=== PATIENT | female | born 1980 | race Caucasian/White ===

== ENCOUNTER 2016-08-15 09:34 | Day surgery (SDC) | payer SELFPAY ==
[2016-08-15 11:21] LABS: MCH 33.1 pg (25.7-33.7); MCHC 34.8 g/dl (32.0-36.0); MEAN CELL VOLUME 95.2 fl (80-96); MEAN PLT VOLUME 8.1 fl (7.5-11.1); PLATELET COUNT 430 K/MM3 (134-434); RDW 11.5 % (11.6-15.6); WHITE BLOOD COUNT 7.9 K/mm3 (4.0-10.0)
[2016-08-15] MEDS ORDERED: GENTAMICIN SO4 80 MG/2 ML VIAL ONE (12:41)
[2016-08-15] MEDS ORDERED: ceFAZolin SODIUM 1 GM VIAL ONE ×2 (12:41→15:14)
[2016-08-15] MEDS ORDERED: PROPOFOL 20 ML ONE ×3 (14:09)
[2016-08-15] MEDS ORDERED: ROCURONIUM BROMIDE 50 MG/5 ML VIAL ONE ×2 (14:09→15:30)
[2016-08-15] MEDS ORDERED: MIDAZOLAM HCL 2 MG/2 ML SINGLE DOSE VIAL ONE ×2 (14:10)
[2016-08-15] MEDS ORDERED: ONDANSETRON 4 MG/2 ML VIAL ONE (15:14)
[2016-08-15] MEDS ORDERED: DEXAMETHASONE SOD PHOSPHATE 4 MG/1 ML VIAL ONE (15:14)
[2016-08-15] MEDS ORDERED: DESFLURANE GAS 240 ML BOTTLE IH ONE (15:41)
[2016-08-15] MEDS ORDERED: NEOSTIGMINE METHYLSULFATE 0.5 MG/ML - 10 ML MDV ONE ×2 (16:26→16:46)
[2016-08-15] MEDS ORDERED: GLYCOPYRROLATE 0.2 MG/1 ML VIAL ONE (16:26)
[2016-08-15] MEDS ORDERED: oxyCODONE HCL 5 MG TABLET PO PRN ×3 (17:06→17:10)
[2016-08-15] MEDS ORDERED: ONDANSETRON 4 MG/2 ML VIAL IVPUSH PRN (17:06)
[2016-08-15] MEDS ORDERED: KETOROLAC TROMETHAMINE 30 MG/1 ML VIAL IVPUSH ONE (17:08)
[2016-08-15] MEDS ORDERED: ONDANSETRON 4 MG/2 ML VIAL IVPB PRN (17:10)
[2016-08-15] MEDS ORDERED: LACTATED RINGERS SOLUTION 1,000 ML IV SCH ×2 (17:15)
[2016-08-15] MEDS ORDERED: oxyCODONE HCL 5 MG TABLET ONE (18:45)
[2016-08-15 19:42] VITALS: BP 100/68; PULSE 58; TEMP 97.9
--- NOTE | 2016-08-16 18:56 | OP ---
DATE OF OPERATION: 08/15/2016 TITLE OF PROCEDURE: Bilateral silicone breast augmentation. ATTENDING SURGEON: Marky Almaraz MD HEATING AND VENTILATING WORKER: None. ANESTHESIA: General endotracheal anesthesia. DESCRIPTION OF PROCEDURE: The patient is marked in the holding area. It was discussed with the patient all risks, benefits and alternatives to the operation, which she understands and agrees to proceed. It is also discussed with the patient that she has preoperative asymmetry, which we will attempt to correct, but postoperative asymmetry is certainty and she needs to accept this. The patient does accept this, agrees to the procedure. Sequential compression stockings and TATI hose are applied in the holding area. She was brought to the operating room, placed in the supine position. All pressure points are carefully padded. She is prepped and draped in the standard surgical fashion. Ancef 1 g was given preoperatively. A timeout was called. The patient, procedure, side and site are verified. The attention was first directed toward the patient's left side where an incision is made in the inframammary crease, 4 cm in length. Dissection has been carried down to the level of the pectoralis major muscle. A subpectoral pocket is developed and hemostasis meticulously achieved with Bovie cautery. The wound was copiously irrigated with triple antibiotic solution. Triple antibiotic solution in this case is 1 L of normal saline; 50,000 units of bacitracin; 80 mg of gentamicin and 1 g of Ancef. When this pocket dissection was completed, a similar pocket was dissected on the contralateral side. It was noted preoperatively that the right breast inframammary fold was 1 cm superior to the left breast and to correct this the incision was made roughly 1 cm inferior to the existing inframammary fold. The pocket was created in a similar way. Additional fibers of the pectoralis major muscle along the insertion at the inferior costal margin are divided to allow for a more inferior position of this implant. The medial pectoralis muscle fibers are divided at the inner quadrant of the breast bilaterally. Copious irrigation and hemostasis are achieved. At this point, gloves are changed and the first implant was brought onto the field. It is a [employer] SRM-295 smooth round moderate plus profile silicon gel filled implant. A no-touch technique is used with a Foley funnel. The implant is rinsed of the biofilm with triple antibiotic solution. It is inserted and oriented properly. This is done bilaterally. The skin is tailor tacked with syl. The patient is brought to a seated upright position where symmetry is assessed. The position of the right implant is slightly lower to accommodate for the preoperative asymmetry. This is achieved and the closure is then performed with capsular fascial 3-0 Vicryl suture interrupted, followed by a running glandular 3-0 Monocryl suture followed by a series of interrupted buried deep dermal 3-0 Monocryl suture, followed by a running subcuticular 4-0 Monocryl suture. This closure is performed bilaterally. Full length half-inch Steri-Strips are then applied to the incisions. A compressive breast binder with Hypafix tape, ABD gauze are applied for dressings. The patient awoke from anesthesia having tolerated the procedure well. She was transferred to recovery without complication. MARKY ALMARAZ M.D. [id number]
== END 2016-08-15 19:40 | disposition home or self-care (01) ==
LOC: FASU 09:34
PROVIDERS: ATTEND Plastic Surgery
PROC: 0H0V0JZ Alteration of Bilateral Breast with Synthetic Substitute, Open Approach (ICD-10-PCS; principal; 2016-08-15 11:30)
DX: Z41.1 Encounter for cosmetic surgery (principal)
CPT/HCPCS: 36415; 84703; 85027; 94760

== ENCOUNTER 2018-12-31 06:03 | Day surgery (SDC) | payer OTHER ==
[2018-12-05 10:04] VITALS: BMI 21.2
[2018-12-31] MEDS ORDERED: MIDAZOLAM HCL 2 MG/2 ML SINGLE DOSE VIAL ONE (07:20)
[2018-12-31] MEDS ORDERED: PROPOFOL 20 ML ONE ×2 (07:20)
[2018-12-31] MEDS ORDERED: SUCCINYLCHOLINE CHLORIDE 200 MG/10 ML SYRINGE ONE (07:20)
--- NOTE | 2018-12-31 07:54 | HP ---
Past Medical History - Primary Care Physician PCP:: Golden Gray - Admission Chief Complaint: 38yo P0 female with endometrial polyps and infertility, admitted for hysteroscopy, polypectomy, and D&C. History of Present Illness: Uterine polyps on HSG, infertility History Source: Patient, Medical Record Limitations to Obtaining History: No Limitations - Past Medical History CONGRESSIONAL ASSISTANT: No: Alzheimer's, CVA, Dementia, Migraine, Multiple Sclerosis, Peripheral Neuropathy, Parkinson's, Seizure, Syncope, TIA, Vertigo, Other Cardiovascular: No: AFIB, Aneurysm, Aortic Insufficiency, Aortic Stenosis, CAD, CHF, Deep Vein Thrombosis, HTN, Hyperlipdemia, TN, Mitral Insufficiency, Mitral Stenosis, Murmur, Pulmonary Hypertension, Other Pulmonary: No: Asthma, Bronchitis, Cancer, COPD, O2 Dependent, Pneumonia, Previously Intubated, Pulmonary Embolus, Pulmonary Fibrosis, Sleep Apnea, Other Gastrointestinal: No: Ascites, Cancer, Constipation, Crohn's Disease, Diverticulitis, Diverticulosis, Esophageal Varices, Gastritis, GERD, GI Bleed, Hemorrhoids, Hiatal Hernia, Inflamatory Bowel Disease, Irritable Bowel Disease, Pancreatitis, Peptic Ulcer Disease, Ulcerative Colitis, Other Hepatobiliary: No: Cirrhosis, Cholelithiasis, Cholecystitis, Choledocholithiasis , Hepatitis A, Hepatitis B, Hepatitis C, Other Renal/: No: Renal Failure, Renal Inusuff, BPH, Cancer, Hematuria, Hemodialysis , Neurogenic Bladder, Renal Calculi, UTI, Other Reproductive: No: Ectopic , Endometriosis, Fibroids, PID, Polycystic Ovary Syndrome, Postmenopausal, Other ...: 0 ...Para: 0 Heme/Onc: No: Anemia, B12 Deficiency, Bleeding Disorder, Cancer, Current Chemotherapy, Current Radiation Therapy, Hemochromatosis, Hypercoaguable State, Myeloproliferative Synd, Sickle Cell Disease, Sickle Cell Trait, Thrombocytopenia, Other Infectious Disease: No: AIDS, C-Diff, Herpes Zoster, HIV, MRSA, STD's, Tuberculosis, VREF, Other Psych: No: Addictions, Anxiety, Bipolar, Depression, Panic, Psychosis, Schizophrenia, Other Musculoskeletal: No: Bursitis, Chronic low back pain, Hemiparesis, Hemiplegia, Osteoarthritis, Paraplegia, Other Rheumatology: No: Fibromyalgia, Gout, Lupus, Rheumatoid Arthritis, Sarcoidosis, Vasculitis, Other ENT: No: Allergic Rhinitis, Sinusitis, Other Endocrine: No: [place]'s Disease, [place]'s Disease, Diabetes Insipidus, Diabetes Mellitus, Hyperparathyroidism, Hyperthyroidism, Hypothyroidism, Osteopenia, SIADH, Other Dermatology: No: Basal Cell, Cellulitis, Eczema, Melanoma, Psoriasis, Squamous Cell, Other - Past Surgical History Hx Myomectomy: No Hx Transabdominal Cerclage: No Additional Surgical History: Brain tumor on 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 13yo - Smoking History Smoking history: Current some day smoker Have you smoked in the past 12 months: Yes - Alcohol/Substance Use Hx Alcohol Use: Yes (WEEKENDS) History of Substance Use: reports: None - Social History Usual Living Arrangement: Yes: Alone ADL: Independent History of Recent Travel: No Home Medications - Allergies Allergies/Adverse Reactions: Allergies Allergy/AdvReac Type Severity Reaction Status Date / Time No Known Allergies Allergy Verified 12/31/18 06:28 - Home Medications Home Medications: Ambulatory Orders Biotin 1 each PO DAILY 08/12/16 No122/Iron/Folic Acid [ Multi Tablet] 1 each PO DAILY 12/05/18 Family Disease History - Family Disease History Family Disease History: CA: Mother (breast), Respiratory: Father (pulm fibrosis) Review of Systems - Review of Systems Constitutional: reports: No Symptoms Eyes: reports: No Symptoms HENT: reports: No Symptoms Neck: reports: No Symptoms Cardiovascular: reports: No Symptoms Respiratory: reports: No Symptoms Gastrointestinal: reports: No Symptoms Genitourinary: reports: No Symptoms Breasts: reports: No Symptoms Reported Musculoskeletal: reports: No Symptoms Integumentary: reports: No Symptoms Neurological: reports: No Symptoms Endocrine: reports: No Symptoms Hematology/Lymphatic: reports: No Symptoms Psychiatric: reports: No Symptoms Pain Intensity: 0 Physical Exam-SOFTWARE ENGINEER INTERN Vital Signs: Vital Signs Temperature 98.0 F 12/31/18 06:22 Pulse Rate 52 L 12/31/18 06:22 Respiratory Rate 20 12/31/18 06:22 Blood Pressure 97/63 12/31/18 06:22 O2 Sat by Pulse Oximetry (%) 100 12/31/18 06:23 Constitutional: Yes: Well Nourished, No Distress, Calm Eyes: Yes: WNL, Conjunctiva Clear HENT: Yes: WNL, Atraumatic, Normocephalic Neck: Yes: WNL, Supple, Trachea Midline Cardiovascular: Yes: WNL, Regular Rate and Rhythm Respiratory: Yes: WNL, Regular, CTA Bilaterally Gastrointestinal: Yes: WNL, Normal Bowel Sounds, Soft ...Rectal Exam: Yes: Deferred Renal/: Yes: WNL Pelvis: Yes: WNL External Genitalia: Yes: Normal Internal Exam Deferred: No Vaginal Exam: Yes: Normal Cervix: Yes: Normal Uterus: Yes: Normal Adnexa: Normal: Left, Right Breast(s): Yes: WNL Musculoskeletal: Yes: WNL Extremities: Yes: WNL Edema: No Integumentary: Yes: WNL Neurological: Yes: WNL, Alert, Oriented ...Motor Strength: WNL Psychiatric: Yes: WNL, Alert, Oriented Imaging - Results Ultrasound: Report Reviewed Assessment/Plan 38yo P0 female with endometrial polyps and infertility, admitted for hysteroscopy, polypectomy, and D&C. We had discussed the risks, benefits, alternatives of surgery at length including but not limited to infection, bleeding, scarring, perforation, amenorrhea, infertility, hysterectomy, etc. The pt verbalized understanding and requested to proceed with surgery. I emphasized that all surgeries have risks and no guarantees can be provided.
[2018-12-31] MEDS ORDERED: DEXAMETHASONE SOD PHOSPHATE 4 MG/1 ML VIAL ONE (08:00)
[2018-12-31] MEDS ORDERED: ceFAZolin SODIUM 1 GM VIAL ONE (08:00)
[2018-12-31] MEDS ORDERED: ceFAZolin SODIUM 1 GM VIAL IVPB ONE (08:02)
[2018-12-31] MEDS ORDERED: KETOROLAC TROMETHAMINE 30 MG/1 ML VIAL ONE (08:25)
[2018-12-31] MEDS ORDERED: LIDOCAINE HCL/PF 2% SDV 5ML VIAL ONE (08:29)
[2018-12-31] MEDS ORDERED: ONDANSETRON 4 MG/2 ML VIAL IVPUSH PRN (08:41)
[2018-12-31] MEDS ORDERED: oxyCODONE HCL 5 MG TABLET PO PRN (08:41)
[2018-12-31] MEDS ORDERED: LACTATED RINGERS SOLUTION 1,000 ML IV SCH (08:45)
--- NOTE | 2018-12-31 08:48 | OP ---
Operative Note - Note: Operative Date: 12/31/18 Pre-Operative Diagnosis: Endometrial polyps Operation: Hysteroscopy, polypectomy, D&C Findings: Several small polyps Post-Operative Diagnosis: Same as Pre-op Surgeon: Golden Gray Anesthesiologist/SCALE ASSEMBLY SET UP WORKER: Erasmo Garcia Anesthesia: General Specimens Removed: Endometrial polyps, endometrial curettings. Estimated Blood Loss (mls): 5 Fluid Volume Replaced (mls): 1,000 Operative Report Dictated: Yes
[2018-12-31 11:13] VITALS: TEMP 97.9
[2018-12-31 11:34] VITALS: BP 92/60; PULSE 58
--- NOTE | 2018-12-31 11:55 | OP ---
DATE OF OPERATION: 12/31/2018 PREOPERATIVE DIAGNOSIS: Endometrial polyps, female infertility. POSTOPERATIVE DIAGNOSIS: Endometrial polyps, female infertility. PROCEDURE: Hysteroscopy, polypectomy, dilation and curettage. SURGEON: Yvrose Joyner MD ANESTHESIOLOGIST: Erasmo Garcia DO ANESTHESIA: General. COMPLICATIONS: None. ESTIMATED BLOOD LOSS: 5 mL. INTRAVENOUS FLUIDS: 1000 mL. HYSTEROSCOPY FLUID DEFICIT: 550 mL. PATHOLOGY: Endometrial polyps, endometrial curettings. FINDINGS: Examination under anesthesia revealed a small anteverted uterus. Hysteroscopy revealed a normal uterine cavity with several small polyps. PROCEDURE: The patient was met preoperatively. Risks, benefits, and alternatives of surgery were discussed in detail. All questions were answered. The patient was then brought to the OR with IV running. She was placed on a surgical table in the supine position. The general anesthesia was achieved without difficulty. The patient was then placed in a dorsal lithotomy position using adjustable Steven stirrups. A timeout was conducted as per standard protocol. The patient was examined under anesthesia with the findings as described above. The patient was prepped and draped in the usual sterile fashion. A weighted speculum was introduced inside the vagina, with good visualization of the cervix. The cervical os was dilated to accommodate a size 21 Campos dilator. A hysteroscope was then gently introduced inside the uterine cavity through the cervical canal. The uterine cavity appeared to be within normal limits. There were several small endometrial polyps noted. An operative hysteroscope was then used to excise the endometrial polyps under direct visualization. Once this was completed, the hysteroscope was removed. A gentle uterine curettage was then performed. All of the tissue was submitted to Pathology. Once the procedure was completed, good hemostasis was noted. Sponge, lap, instrument counts were correct. Once again hemostasis was confirmed. The patient was returned to supine position. She was then transferred to recovery room awake and in stable condition. YVROSE JOYNER M.D. MARIA DEL [id number]
--- NOTE | 2019-01-01 16:35 | PATH ---
Surgical Pathology Report Patient Name: CAYETANO RIDDLE [facility]. Rec. #: [id number] /Age/Gender: 1980 (Age: 38) / F Account: [id number] Location: [facility] SURGICAL Taken: 12/31/2018 Received: 12/31/2018 Reported: 01/01/2019 Physicians: Golden Gray M.D. Specimen(s) Received A: ENDOMETRIAL CURETTINGS B: RESECTED POLYPS Clinical History Endometrial polyps, infertility Final Diagnosis A. ENDOMETRIAL CURETTINGS: FRAGMENTS OF SECRETORY TYPE ENDOMETRIUM. SEPARATE BENIGN ENDOCERVICAL TISSUE. B. RESECTED POLYPS: FRAGMENTS OF SECRETORY TYPE ENDOMETRIUM. 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 BENIGN ENDOCERVICAL TISSUE. Electronically Signed [place] Saleem M.D. Gross Description A. Received in formalin labeled "endometrial curettings," is a 2.0 x 1.8 x 0.3 cm aggregate of grijalva-brown soft tissue fragments admixed with blood clot. The formalin is filtered and the specimen is entirely submitted in one cassette. B. Received in formalin labeled "resected polyps," is a 3.0 x 2.8 x 0.3 cm aggregate of grijalva-pink soft tissue fragments. The formalin is filtered and the specimen is entirely submitted in 3 cassettes. /12/31/2018 [facility]12/31/2018
== END 2018-12-31 12:06 | disposition home or self-care (01) ==
LOC: JASU-SURG 06:03
PROVIDERS: ATTEND Obstetrics & Gynecology
PROC: 0UJD8ZZ Inspection of Uterus and Cervix, Via Natural or Artificial Opening Endoscopic (ICD-10-PCS; 2018-12-31)
PROC: 0UB97ZX Excision of Uterus, Via Natural or Artificial Opening, Diagnostic (ICD-10-PCS; principal; 2018-12-31 07:30)
PROC: 0UDB7ZX Extraction of Endometrium, Via Natural or Artificial Opening, Diagnostic (ICD-10-PCS; 2018-12-31 07:30)
DX: N84.0 Polyp of corpus uteri (principal); N97.9 Female infertility, unspecified
CPT/HCPCS: 84703; 86850; 86900; 86901; 88305-TC; 94760